=== PATIENT | female | born 1980 | race Caucasian/White ===

== ENCOUNTER 2022-07-17 16:59 | Emergency (ER) | payer MEDICAID, SELFPAY ==
[2022-07-17 17:00] VITALS: BP 123/90; PULSE 98; RESP 16; TEMP 36.4; O2SAT 98; BMI 21.4
--- NOTE | 2022-07-17 17:15 | ED.VIS.GI ---
HPI HPI - GI History of Present Illness Chief Complaint: Abd Pain Informant: patient Abdominal Pain/Flank Pain Onset: Yesterday Context: Sudden Onset Timing: Continuous Quality: Sharp and Stabbing Location: Epigastric, RUQ and LUQ Worsened by: Nothing Relieved by: Nothing Nausea/Vomiting/Emesis GI Symptom: Positive for Nausea and Vomiting Quality: Positive for Nonbilious; Negative for Blood streaks, Coffee ground or Hematemesis Diarrhea/Melena/Hematochezia GI Symptom: Positive for Diarrhea; Negative for Melena or Hematochezia Associated Symptoms Associated Symptoms: Negative for Dysuria, Frequency or Hematuria Narrative Narrative: Patient presents with abdominal pain that began yesterday. Patient states it began suddenly. Patient states it is constant. Patient states it is sharp and stabbing. Patient states it is worse over the epigastric area and upper abdomen. Patient also admits to some lower abdominal pain. Patient states nothing makes it better nothing makes it worse. Patient is at 180 for alcohol detox. Patient states she did drink some hand hydrogenation operator to try to help with the pain. Patient states she has a history of pancreatitis and this feels similar to that. Patient admits to some nausea and vomiting but denies any hematemesis or coffee-ground emesis. Patient does admit to some diarrhea but denies any melena or hematochezia. Patient denies any urinary complaints. PFSH PFSH Medical History Clavicle fracture ETOH abuse Home Medications bupropion HCl 100 mg tablet 100 mg PO DAILY 07/17/22 [History Last Taken Unknown] escitalopram oxalate 5 mg tablet (Lexapro) 0 mg PO DAILY 07/17/22 [History Last Taken Unknown] lipase 3,000-protease 9,500-amylase 15,000 unit capsule, delayed rel (Creon) 1 cap PO TIDCM 07/17/22 [History Last Taken Unknown] multivit 33-meth.folate 2.5 mg-acetylcyst 200 mg-chromium 1 mg capsule 1 cap PO DAILY 07/17/22 [History Last Taken Unknown] Allergy/AdvReac Type Severity Reaction Status Date / Time No Known Allergies Allergy Verified 07/17/22 17:00 Surgical History (Updated 07/17/22 @ 17:[address] Moody Barclay, DO) Hx of dilation and curettage S/P ORIF (open reduction internal fixation) fracture Social History Smoking Status: Current every day smoker tobacco type: cigarettes ROS ROS ED Constitutional Constitutional ED: Reports chills, fever(s) and subjective Eyes Eyes: Denies blurry vision or change in vision ENT ENT ED: Denies rhinorrhea or sore throat Cardiovascular Cardiovascular: Denies chest pain or palpitations Respiratory/Chest Respiratory/Chest: Denies cough or dyspnea Gastrointestinal Gastrointestinal: Reports abdominal pain, diarrhea, nausea and vomiting Genitourinary Genitourinary ED: Denies dysuria or hematuria Musculoskeletal Musculoskeletal: Reports back pain and neck pain Integumentary Denies abscess or rash Neurologic Neurologic: Reports headache(s); Denies weakness Allergic/Immunologic Allergic/Immunologic ED: Denies mouth swelling or urticaria EXAM Physical Exam Const Vital Signs: 07/17/22 17:00 07/17/22 19:49 Temperature 97.6 F L Temperature Source Oral Pulse Rate 98 Respiratory Rate 16 18 Blood Pressure 123/90 H Blood Pressure Mean 101 Pulse Ox 98 Oxygen Delivery Method Room Air Positive well nourished and well developed General Appearance ED: well developed HEENT Reports moist mucous membranes Neck supple and no JVD Resp normal respiratory effort and clear to auscultation bilaterally Cardio regular rate, regular rhythm and no murmurs GI normal to inspection, nondistended, normoactive bowel sounds Palpation: soft and tender epigastric, LLQ, RLQ, LUQ, RUQ, periumbilical and suprapubic; Negative for guarding or rebound tenderness present Extremity normal to inspection General Extremety ED: Negative for edema or tenderness General Extremity: Negative for edema Neuro oriented x3, CN's II-XII intact bilaterally and no sensory deficits noted Sensorium / Orientation: alert Motor Exam: strength 5/5 throughout Psych mental status grossly normal Skin no rashes or lesions noted MDM MDM MDM Narrative Medical decision making narrative: IV fluids, Zofran, and Bentyl here. CBC was within normal limits. Comprehensive metabolic profile was within normal limits. Lipase was normal. Serum test was negative. Serum alcohol level was elevated at 185. Urinalysis does not show any evidence of urinary tract infection. Urine tox screen was positive for benzodiazepines and methamphetamine. Patient was advised of her findings. Patient was still having some abdominal pain and anxiety. Patient was given a dose of Tylenol and hydroxyzine. Patient was instructed to follow-up with her primary care physician in 5 to 7 days. Patient was instructed to follow-up with 180 as scheduled. Patient understood and was agreeable with the plan. All questions were answered. Lab Data Attestation: I reviewed the patient's lab results. Labs: Laboratory Results - last 24 hr 07/17/22 07/17/22 07/17/22 17:58 17:58 17:58 WBC 9.4 RBC 3.86 L Hgb 12.5 Hct 37.6 MCV 97.4 MCH 32.4 H MCHC 33.2 RDW Std Deviation 47.5 H RDW Coeff of Rocio 13.2 Plt Count 221 MPV 9.2 Immature Gran % (Auto) 0.300 Neut % (Auto) 51.9 Lymph % (Auto) 41.6 H Coles % (Auto) 5.1 Eos % (Auto) 0.1 Baso % (Auto) 1.0 Absolute Neuts (auto) 4.9 Absolute Lymphs (auto) 3.91 Nucleated RBC % 0 Sodium 141 Potassium 4.6 Chloride 105 Carbon Dioxide 30.0 Anion Gap 6 BUN 15 Creatinine 0.74 Estim Creat Clear Calc 101.94 Est GFR (MDRD) Af Amer 111 Est GFR (MDRD) Non-Af 92 BUN/Creatinine Ratio 20.2 H Glucose 80 Calcium 9.6 Total Bilirubin 0.20 AST 40 H ALT 45 Alkaline Phosphatase 75 Total Protein 7.0 Albumin 3.6 Globulin 3.4 Albumin/Globulin Ratio 1.1 Lipase 113 Serum , Qual Urine Color Urine Clarity Urine pH Ur Specific [place] Urine Protein Urine Glucose (UA) Urine Ketones Urine Occult Blood Urine Nitrite Urine Bilirubin Urine Urobilinogen Ur Leukocyte Esterase Urine Opiates Screen Urine Methadone Screen Ur Barbiturates Screen Ur Phencyclidine Scrn Ur Amphetamines Screen MDMA (Ecstasy) Screen U Benzodiazepines Scrn Urine Cocaine Screen U Cannabinoids Screen Ur Drug Screen Comment Ethyl Alcohol 185.0 07/17/22 07/17/22 07/17/22 17:58 19:43 19:43 WBC RBC Hgb Hct MCV MCH MCHC RDW Std Deviation RDW Coeff of Rocio Plt Count MPV Immature Gran % (Auto) Neut % (Auto) Lymph % (Auto) Coles % (Auto) Eos % (Auto) Baso % (Auto) Absolute Neuts (auto) Absolute Lymphs (auto) Nucleated RBC % Sodium Potassium Chloride Carbon Dioxide Anion Gap BUN Creatinine Estim Creat Clear Calc Est GFR (MDRD) Af Amer Est GFR (MDRD) Non-Af BUN/Creatinine Ratio Glucose Calcium Total Bilirubin AST ALT Alkaline Phosphatase Total Protein Albumin Globulin Albumin/Globulin Ratio Lipase Serum , Qual NEGATIVE Urine Color Straw Urine Clarity Clear Urine pH 6.0 Ur Specific [place] 1.020 Urine Protein Negative Urine Glucose (UA) Normal Urine Ketones Negative Urine Occult Blood Negative Urine Nitrite Negative Urine Bilirubin Negative Urine Urobilinogen Normal Ur Leukocyte Esterase Negative Urine Opiates Screen NEGATIVE Urine Methadone Screen NEGATIVE Ur Barbiturates Screen NEGATIVE Ur Phencyclidine Scrn NEGATIVE Ur Amphetamines Screen NEGATIVE MDMA (Ecstasy) Screen POSITIVE H U Benzodiazepines Scrn POSITIVE H Urine Cocaine Screen NEGATIVE U Cannabinoids Screen NEGATIVE Ur Drug Screen Comment Ethyl Alcohol Discharge Plan Triage Chief Complaint: Abd Pain ED Provider: Moody Barclay Dx/Rx/DC Orders Clinical Impression: Abdominal pain, Alcohol intoxication, Substance abuse Instructions: ED Abdominal Pain Unkn Cause Fem Prescriptions: No Action bupropion HCl [Wellbutrin] 100 mg Tablet 100 mg PO DAILY escitalopram oxalate [Lexapro] 5 mg Tablet 0 mg PO DAILY Creon 3,000-9,500- 15,000 unit Capsule,Delayed Release(Dr/Ec) 1 cap PO TIDCM Label Comments: PT UNSURE OF DOSE. multivit [id number]-chrom 2.5-200-1 mg-mg-mg Capsule 1 cap PO DAILY Primary Care Provider: Guido Doctor,Out of Referrals: [facility] [Non-Staff] - 3-5 Days [facility] Doctor,Out of [Primary Care Provider] - 5-7 Days Disposition Disposition: Home, Self Care
[2022-07-17] MEDS: 0.9% Normal Saline 1,000 ML 1000 ML IV (18:06)
[2022-07-17] MEDS: Dicyclomine 20 MG/2 ML Vial IM (18:07)
[2022-07-17] MEDS: Ondansetron 4 MG/2 ML Vial IV (18:07)
[2022-07-17 18:12] LABS: Absolute Lymphocyte Count 3.91 X10^3/uL (0.83-4.51); Absolute Neutrophil Count 4.9 X10^3/uL (2.0-7.7); Basophil# 0.09 X10^3/uL; Eosinophil# 0.01 X10^3/uL; Eosinophils% 0.1 % (0-5); Hematocrit 37.6 % (37-47); Hemoglobin 12.5 g/dL (12.0-15.0); Lymphocyte # 3.91 X10^3/ul (0.83-4.51); Lymphocyte % 41.6 % (19-41); Mean Corp Hgb Conc 33.2 g/dL (32-36); Mean Corpuscular Hgb 32.4 pg (27.0-32.0); Mean Corpuscular Volume 97.4 fL (81-99); Mean Platelet Vol. 9.2 fl (6.2-12.0); Monocyte# 0.48 X10^3/uL; Monocyte% 5.1 % (0-10); NRBC Flagged by Analyzer 0 % (0-5); Neutrophil # 4.87 X10^3/uL (2.7-7.7); Neutrophil % 51.9 % (47-70); Platelet Count 221 K/mm3 (150-450); RBC Distribution Width CV 13.2 % (11.6-14.6); RBC Distribution Width SD 47.5 fl (35.1-43.9); Red Blood Count 3.86 M/mm3 (4.2-5.4); White Blood Count 9.4 K/mm3 (4.4-11.0)
[2022-07-17 18:27] LABS: Internal QC Validated? YES +Cl - CLEAR BKGD; Pregnancy, Serum, hCG Quali. NEGATIVE Negative
[2022-07-17 18:29] LABS: ALB/GLOB Ratio 1.1 RATIO (0.9-2.4); AST(SGOT) 40 U/L (15-37); Alanine Aminotransfer ALT/SGPT 45 U/L (13-56); Albumin, Serum 3.6 g/dL (3.2-5.0); Alkaline Phosphatase 75 U/L (45-117); Anion Gap 6 (5-15); BUN 15 mg/dL (7-18); BUN/Creat Ratio 20.2 RATIO (10-20); Calcium,Total 9.6 mg/dL (8.5-10.1); Chloride 105 mmol/L (98-107); Creatinine, Serum 0.74 mg/dL (0.55-1.02); EST Glomerular Filtration Rate 92 mL/min (>60); Est Glom Filt Rate - Afr Amer 111 mL/min (>60); Estimated Creatinine Clearance 101.94 ml/min; Globulin 3.4 g/dL (2.2-4.2); Glucose 80 mg/dL (74-106); Lipase 113 U/L (73-393); Potassium 4.6 mmol/L (3.5-5.1); Sodium Level 141 mmol/L (136-145)
[2022-07-17 19:49] VITALS: RESP 18
[2022-07-17 19:52] LABS: Bacteria 0 SEEN /hpf (None Seen); Mucous, Urine 0 SEEN /hpf (<or=2+); Red Blood Cells-Urine 0 SEEN /hpf (0-5); White Blood Cells 0 SEEN /hpf (0-5)
[2022-07-17 19:56] LABS: Color, Urine Straw (Yellow); Glucose, Dipstick Normal (Normal); Ketone-Dipstick Negative (Negative); Leukocyte Esterase-Dipstick Negative /ul (Negative); Nitrite-Dipstick Negative (Negative); Occult Blood-Urine Negative /ul (Negative); Protein-Dipstick Negative (Negative); Urine Bilirubin Dipstick Negative (Negative); Urine Clarity Clear (Clear); Urine Urobilinogen Normal (Normal)
[2022-07-17 20:08] LABS: Amphetamine Urine VISTA NEGATIVE (<1000 ng/mL); Barbiturate Urine VISTA NEGATIVE (< 200 ng/mL); Benzodiazepine Urine VISTA POSITIVE (< 200 ng/mL); Cocaine Urine VISTA NEGATIVE (< 300 ng/mL); Ecstacy Urine VISTA POSITIVE (< 500 ng/mL); Methadone Urine VISTA NEGATIVE (< 300 ng/mL); PCP Urine VISTA NEGATIVE (< 25 ng/mL); THC Urine VISTA NEGATIVE (< 50 ng/mL); Vista UDS pH Range 4
[2022-07-17 20:13] LABS: Squamous Epithelial Cells - UA 0-5 SEEN /hpf (5-10)
[2022-07-17] MEDS: hydrOXYzine PAM 25 MG Capsule PO (20:23)
[2022-07-17] MEDS: Acetaminophen 500 MG Tablet 1000 MG PO (20:23)
[2022-07-17 20:26] VITALS: BP 120/60; PULSE 104; RESP 18; O2SAT 98
== END 2022-07-17 20:28 | disposition home or self-care (01) ==
PROVIDERS: Emergency Provider Emergency Medicine; Visit Provider Emergency Medicine
DX: R10.13 Epigastric pain (principal); F10.129 Alcohol abuse with intoxication, unspecified; R10.11 Right upper quadrant pain; R10.12 Left upper quadrant pain; R11.2 Nausea with vomiting, unspecified; R19.7 Diarrhea, unspecified; F41.9 Anxiety disorder, unspecified; M54.9 Dorsalgia, unspecified; M54.2 Cervicalgia; F17.210 Nicotine dependence, cigarettes, uncomplicated; Z79.1 Long term (current) use of non-steroidal anti-inflammatories (NSAID); Z79.899 Other long term (current) drug therapy
CPT/HCPCS: 80053; 80307; 81001; 82077; 83690; 84703; 85025; 96361; 96372; 96374; 99285; J7030; A4216; J2405

== ENCOUNTER 2022-07-18 16:11 | Inpatient (IN) | payer MEDICAID, SELFPAY ==
[2022-07-18] VITALS (7 sets, daily range): BP systolic 88–134; BP diastolic 47–93; PULSE 78–115; RESP 16–20; TEMP 36.3–36.7; O2SAT 94–98; BMI 18.2; BMI 20.5
--- NOTE | 2022-07-18 16:56 | EDS_ITS ---
HPI History of Present Illness Chief Complaint: ETOH Intox Informant: patient Narrative Narrative: Presents requesting alcohol detox. Patient was seen yesterday ED for abdominal pain concern for pancreatitis. She is at 180 for 1 day prior to coming here. She reported drinking hand water taxi captain to try to help with symptoms. She tried to go back however she was denied back. She stated a hotel and drank alcohol. Last drink 4 PM. States previously was at main campus for pancreatitis for 8 days. She is not planning they 18 months ago for alcohol treatment. Drink of choice was white claw. Review labs yesterday normal lipase. She had alcohol of 185, tox screen noted benzos and MDMA. She denies taking ecstasy, she states she was given Ativan at 180. Reports allergic to phenobarbital. Reports continued abdominal pain with vomiting however is able to take alcohol. PFSH PFSH Medical History Clavicle fracture ETOH abuse Migraines Pancreatitis Seizures Smoker Home Medications escitalopram oxalate 5 mg tablet (Lexapro) 10 mg PO DAILY mental health 07/17/22 [History Last Taken Unknown] lipase 3,000-protease 9,500-amylase 15,000 unit capsule, delayed rel (Creon) 1 cap PO TIDCM liver 07/17/22 [History Last Taken Unknown] multivit 33-meth.folate 2.5 mg-acetylcyst 200 mg-chromium 1 mg capsule 1 cap PO DAILY 07/17/22 [History Last Taken 07/17/22] acamprosate 333 mg tablet,delayed release 333 mg PO TID kidneys 07/18/22 [History Last Taken 07/16/22] bupropion HCl 300 mg 24 hr tablet, extended release 300 mg PO DAILY 07/18/22 [H istory Last Taken 07/17/22] chlordiazepoxide HCl 25 mg capsule 25 mg PO TID PRN PRN ask your doc 07/18/22 [History Last Taken Unknown] folic acid 1 mg tablet 1 mg PO DAILY supplement 07/18/22 [History Last Taken 07/16/22] gabapentin 300 mg capsule 300 mg PO BID nerve pain 07/18/22 [History Last Taken 07/17/22] lorazepam 1 mg tablet 1 mg PO PRN PRN Seizures 07/18/22 [History Last Taken Unknown] meloxicam 15 mg tablet 15 mg PO DAILY anti infamitory 07/18/22 [History Last Taken Unknown] oxycodone 5 mg tablet 5 mg PO Q6H PRN PRN Pain 07/18/22 [History Last Taken 07/16/22] pantoprazole 40 mg tablet,delayed release 40 mg PO DAILY acid reflux 07/18/22 [History Last Taken 07/17/22] trazodone 100 mg tablet 150 mg PO QHS sleep 07/18/22 [History Last Taken 07/17/22] venlafaxine 225 mg tablet,extended release 24 hr 225 mg PO DAILY Check with primary doctor 07/18/22 [History Last Taken 07/17/22] Allergy/AdvReac Type Severity Reaction Status Date / Time hydroxyzine [From Vistaril] Allergy Rash Verified 07/18/22 17:27 phenobarbital Allergy Rash Verified 07/18/22 17:27 Surgical History Hx of dilation and curettage S/P ORIF (open reduction internal fixation) fracture Social History Smoking Status: Current every day smoker tobacco type: cigarettes ROS ROS ED Constitutional Constitutional ED: Denies chills, fever(s) or sweats Eyes Eyes: Denies change in vision ENT ENT ED: Denies dysphagia or sore throat Cardiovascular Cardiovascular: Denies chest pain, leg edema, palpitations or racing heartbeat Respiratory/Chest Respiratory/Chest: Denies cough, dyspnea or dyspnea on exertion Gastrointestinal Gastrointestinal: Reports abdominal pain, nausea and vomiting; Denies diarrhea Genitourinary Genitourinary ED: Denies dysuria, hematuria or urinary frequency Musculoskeletal Musculoskeletal: Denies back pain, extremity pain or neck pain Integumentary Denies rash or wounds Neurologic Neurologic: Denies headache(s), paresthesias or weakness EXAM Physical Exam Const Vital Signs: 07/18/22 16:12 07/18/22 16:12 07/18/22 16:33 Temperature 97.4 F L 97.4 F L Temperature Source Temporal Temporal Pulse Rate 115 H 115 H Respiratory Rate 20 H 20 H 18 Blood Pressure 134/93 H 134/93 H 124/87 H Blood Pressure Mean 106 106 99 Blood Pressure Source Monitor Blood Pressure Position Supine Blood Pressure Location Right Arm Pulse Ox 96 96 94 Oxygen Delivery Method Room Air Room Air Room Air 07/18/22 18:41 07/18/22 20:00 Temperature Temperature Source Pulse Rate 94 92 Respiratory Rate 18 18 Blood Pressure 114/76 88/48 L Blood Pressure Mean 88 61 Blood Pressure Source Blood Pressure Position Blood Pressure Location Pulse Ox 98 96 Oxygen Delivery Method Room Air Room Air Positive well nourished and well developed Constitutional Narrative: Intoxicated, cooperative, following commands and answering questions. General Appearance ED: well developed HEENT Reports moist mucous membranes normocephalic and atraumatic Eyes PERRL, EOMs intact bilaterally and conjunctivae normal General Eye ED: Yes normal appearance of both eyes Neck no lymphadenopathy and supple General: Negative for tenderness Chest Wall Chest: Negative for tenderness Resp normal respiratory effort and normal air movement Effort and Inspection: symmetric chest movement; Negative for respiratory distress Cardio regular rhythm and no murmurs Rate: tachycardic Peripheral Pulses: pulses 2+ throughout GI normal to inspection, nondistended, normoactive bowel sounds GI Narrative: Mid abdominal tenderness without guarding or rebound. Palpation: Negative for guarding or rebound tenderness present Back/Spine no CVA tenderness and no thoracic nor lumbar tenderness Extremity normal to inspection General Extremety ED: Negative for edema or tenderness General Extremity: Negative for edema Neuro oriented x3 and no sensory deficits noted Sensorium / Orientation: awake and alert Skin no rashes or lesions noted and no wounds MDM MDM MDM Narrative Medical decision making narrative: Patient clinically intoxicated and requesting detox. He reports persistent pain in epigastrium since being seen yesterday. She was tender with this. Medical clearance labs including abdominal labs were obtained along with her symptoms. White count returned at 14, this was up from 9 yesterday. Lipase was normal liver enzyme AST at 45. Creatinine 0.78. Alcohol returned at 420. Talk screen again notes benzodiazepines and MDMA. Patient reports receiving Ativan at 180. She denies any MDMA use. With her leukocytosis and abdominal pain epigastrium CT abdomen pelvis IV contrast obtained noting possible sludge in the gallbladder. possible mild thickening of the proximal colon could be due to incomplete distention or infection. She is nontender in this area. She had epigastric tenderness for ultrasound was obtained to rule out cholecystitis. Results noted sludge with no gallbladder wall thickening or pericholecystic fluid. There is no surgical emergencies. Patient still requesting alcohol assistance. Spoke with hospitalist Dr. Cleary who evaluated for admission. Lab Data Attestation: I reviewed the patient's lab results. Labs: Laboratory Results - last 24 hr 07/18/22 07/18/22 07/18/22 17:07 17:07 17:07 WBC 14.2 H RBC 4.09 L Hgb 13.1 Hct 38.1 MCV 93.2 MCH 32.0 MCHC 34.4 RDW Std Deviation 45.1 H RDW Coeff of Rocio 13.2 Plt Count 249 MPV 9.1 Immature Gran % (Auto) 0.400 Neut % (Auto) 59.1 Lymph % (Auto) 36.6 [place] % (Auto) 3.2 Eos % (Auto) 0.1 Baso % (Auto) 0.6 Absolute Neuts (auto) 8.4 H Absolute Lymphs (auto) 5.20 H Nucleated RBC % 0 Differential Comment Atypical Lymphocytes 1+ Platelet Estimate ADEQUATE RBC Morphology N CHROM Anisocytosis RARE Macrocytosis RARE Sodium 136 Potassium 4.3 Chloride 100 Carbon Dioxide 24.0 Anion Gap 12 BUN 12 Creatinine 0.78 Estim Creat Clear Calc 82.38 Est GFR (MDRD) Af Amer 105 Est GFR (MDRD) Non-Af 87 BUN/Creatinine Ratio 15.4 Glucose 82 Calcium 8.8 Total Bilirubin 0.30 AST 45 H ALT 53 Alkaline Phosphatase 71 Total Protein 7.1 Albumin 3.6 Globulin 3.5 Albumin/Globulin Ratio 1.0 Lipase 94 Urine Opiates Screen Urine Methadone Screen Ur Barbiturates Screen Ur Phencyclidine Scrn Ur Amphetamines Screen MDMA (Ecstasy) Screen U Benzodiazepines Scrn Urine Cocaine Screen U Cannabinoids Screen Ur Drug Screen Comment Ethyl Alcohol 420.0 H* 07/18/22 18:40 WBC RBC Hgb Hct MCV MCH MCHC RDW Std Deviation RDW Coeff of Rocio Plt Count MPV Immature Gran % (Auto) Neut % (Auto) Lymph % (Auto) [place] % (Auto) Eos % (Auto) Baso % (Auto) Absolute Neuts (auto) Absolute Lymphs (auto) Nucleated RBC % Differential Comment Atypical Lymphocytes Platelet Estimate RBC Morphology Anisocytosis Macrocytosis Sodium Potassium Chloride Carbon Dioxide Anion Gap BUN Creatinine Estim Creat Clear Calc Est GFR (MDRD) Af Amer Est GFR (MDRD) Non-Af BUN/Creatinine Ratio Glucose Calcium Total Bilirubin AST ALT Alkaline Phosphatase Total Protein Albumin Globulin Albumin/Globulin Ratio Lipase Urine Opiates Screen NEGATIVE Urine Methadone Screen NEGATIVE Ur Barbiturates Screen NEGATIVE Ur Phencyclidine Scrn NEGATIVE Ur Amphetamines Screen NEGATIVE MDMA (Ecstasy) Screen POSITIVE H U Benzodiazepines Scrn POSITIVE H Urine Cocaine Screen NEGATIVE U Cannabinoids Screen NEGATIVE Ur Drug Screen Comment Ethyl Alcohol Radiography Diagnostic Testing: Clinical Impression(s) from Imaging Studies Abdomen/Pelvis CT 07/18/22 18:07 IMPRESSION: 1. Fluid density lesion in the right hemipelvis which may represent an ovarian cyst. Trace amount of free fluid in the pelvis. 2. Mild thickening of the wall of the proximal colon which may be due to incomplete distention mild colitis. 3. Trace dense material in the gallbladder which may represent sludge. There is no gallstone or pericholecystic inflammation. Electronically Signed: Segundo Teixeira MD at 19:17 EDT , Gallbladder Ultrasound 07/18/22 19:21 IMPRESSION: Trace amount of sludge within the gallbladder. No other abnormalities are identified. Electronically Signed: Segundo Teixeira MD at 20:24 EDT , Discharge Plan Dx/Rx/DC Orders Clinical Impression: Alcohol intoxication, Abdominal pain, Alcohol dependence Disposition Disposition: Acute Care Hospital [facility] Discharge Date/Time: 07/18/22 21:45
[2022-07-18 17:19] LABS: Absolute Neutrophil Count 8.4 X10^3/uL (2.0-7.7); Basophil# 0.08 X10^3/uL; Basophil% 0.6 % (0-1); Eosinophil# 0.01 X10^3/uL; Eosinophils% 0.1 % (0-5); Hematocrit 38.1 % (37-47); Hemoglobin 13.1 g/dL (12.0-15.0); Lymphocyte % 36.6 % (19-41); Mean Corp Hgb Conc 34.4 g/dL (32-36); Mean Corpuscular Volume 93.2 fL (81-99); Mean Platelet Vol. 9.1 fl (6.2-12.0); Monocyte# 0.45 X10^3/uL; Monocyte% 3.2 % (0-10); NRBC Flagged by Analyzer 0 % (0-5); Neutrophil # 8.43 X10^3/uL (2.7-7.7); Neutrophil % 59.1 % (47-70); POSITIVE DIFFERENTIAL YES; POSITIVE MORPHOLOGY YES; Platelet Count 249 K/mm3 (150-450); RBC Distribution Width CV 13.2 % (11.6-14.6); RBC Distribution Width SD 45.1 fl (35.1-43.9); Red Blood Count 4.09 M/mm3 (4.2-5.4); White Blood Count 14.2 K/mm3 (4.4-11.0)
[2022-07-18 17:23] LABS: Differential Indicated SCAN CRITERIA MET
--- NOTE | 2022-07-18 17:26 | CM.ED ---
Social Work Note Reason for Referral: RAMP SW reviewed chart. Pt is at [facility] for Detox. SW in to speak with pt. SW asked pt if she is at [facility] for the Detox/RAMP program and pt states I guess. It appears pt has the Plan of Care agreement next to her in the bed. SW reviewed rules of RAMP program. Pt agreeable. SW placed a call to treatment navigator and updated staff that pt will be admitted to RAMP program. Myla Dodd COMMUNITY MARKETING COORDINATOR, GEOTECHNICAL ENGINEERING TECHNICIAN
[2022-07-18] MEDS: 0.9% Normal Saline 1,000 ML 999 ML IV (17:43)
[2022-07-18] MEDS: Ondansetron 4 MG/2 ML Vial IV (17:43)
[2022-07-18 17:49] LABS: Atypical Lymphocyte 1+ %; Platelet Estimate ADEQUATE (ADEQ)
[2022-07-18 17:50] LABS: Anisocytosis RARE; Macrocytosis RARE; Red Cell Morphology N CHROM NORMAL (NORM C&C)
[2022-07-18 17:54] LABS: AST(SGOT) 45 U/L (15-37); Alanine Aminotransfer ALT/SGPT 53 U/L (13-56); Albumin, Serum 3.6 g/dL (3.2-5.0); Alkaline Phosphatase 71 U/L (45-117); Anion Gap 12 (5-15); BUN 12 mg/dL (7-18); BUN/Creat Ratio 15.4 RATIO (10-20); Calcium,Total 8.8 mg/dL (8.5-10.1); Chloride 100 mmol/L (98-107); Creatinine, Serum 0.78 mg/dL (0.55-1.02); EST Glomerular Filtration Rate 87 mL/min (>60); Est Glom Filt Rate - Afr Amer 105 mL/min (>60); Estimated Creatinine Clearance 82.38 ml/min; Globulin 3.5 g/dL (2.2-4.2); Glucose 82 mg/dL (74-106); Lipase 94 U/L (73-393); Potassium 4.3 mmol/L (3.5-5.1); Protein, Total 7.1 g/dL (6.4-8.2); Sodium Level 136 mmol/L (136-145)
--- NOTE | 2022-07-18 18:07 | CT_ITS ---
EXAM: CT ABDOMEN AND PELVIS WITH INTRAVENOUS CONTRAST CLINICAL INDICATION: abdominal pain TECHNIQUE: Helically acquired images were obtained of the abdomen and pelvis with intravenous contrast. This CT exam was performed using one or more of the following dose reduction techniques: automated exposure control, adjustment of the mA and/or kV according to patient size, and/or use of iterative reconstruction technique. This report was created using [employer] report generation technology. CONTRAST: IV 75mL [id number] COMPARISON: None. FINDINGS: LOWER THORAX: Unremarkable. Lung bases are clear. No cardiomegaly. No significant pericardial effusion. ABDOMEN: LIVER: Unremarkable. Homogeneous. No focal mass. GALLBLADDER AND BILE DUCTS: There is minimally dense material in the gallbladder which may represent sludge. No calcified gallstones. No gallbladder distention or wall edema. No intra- or extrahepatic biliary ductal dilation. PANCREAS: Unremarkable. No focal cystic or solid mass. SPLEEN: Unremarkable. Normal size without focal cystic or solid mass. ADRENALS: Unremarkable. No nodules. KIDNEYS AND URETERS: Unremarkable. Normal renal size and position. No hydronephrosis. STOMACH AND BOWEL: There is mild thickening of the wall of the proximal colon likely due to incomplete distention. PELVIS: APPENDIX: No evidence of acute appendicitis. BLADDER: Unremarkable. REPRODUCTIVE: There is a low-density lesion in the right hemipelvis measures 2.3 x 1.7 cm compatible with an ovarian cyst. ABDOMEN and PELVIS: INTRAPERITONEAL SPACE: Unremarkable. No ascites or other fluid collection. No free air. BONES/JOINTS: Unremarkable. No suspicious lytic or blastic abnormality. SOFT TISSUES: Unremarkable. No discrete abdominal or pelvic wall hernia. VASCULATURE: Unremarkable. Abdominal aorta is non-dilated. LYMPH NODES: Unremarkable. No enlarged lymph nodes. CT/Abdomen/Pelvis W IV Cont ONLY IMPRESSION: 1. Fluid density lesion in the right hemipelvis which may represent an ovarian cyst. Trace amount of free fluid in the pelvis. 2. Mild thickening of the wall of the proximal colon which may be due to incomplete distention mild colitis. 3. Trace dense material in the gallbladder which may represent sludge. There is no gallstone or pericholecystic inflammation. Electronically Signed: Segundo Teixeira MD at 19:17 EDT ,
[2022-07-18 19:08] LABS: Amphetamine Urine VISTA NEGATIVE (<1000 ng/mL); Barbiturate Urine VISTA NEGATIVE (< 200 ng/mL); Benzodiazepine Urine VISTA POSITIVE (< 200 ng/mL); Cocaine Urine VISTA NEGATIVE (< 300 ng/mL); Ecstacy Urine VISTA POSITIVE (< 500 ng/mL); Methadone Urine VISTA NEGATIVE (< 300 ng/mL); PCP Urine VISTA NEGATIVE (< 25 ng/mL); THC Urine VISTA NEGATIVE (< 50 ng/mL); Vista UDS pH Range 4
--- NOTE | 2022-07-18 19:21 | US_ITS ---
EXAM: US ABDOMEN LIMITED, RIGHT UPPER QUADRANT CLINICAL INDICATION: abd pain -- poss sludge on CT, TECHNIQUE: Real-time ultrasound of the right upper quadrant with image documentation. This report was created using [employer] report Smart GPS Backpack technology. COMPARISON: None. FINDINGS: LIVER: Liver measures 16.6 cm. There is a 6 x 7 mm echogenic focus in the liver compatible with hemangioma. No intrahepatic biliary ductal dilation. GALLBLADDER: Gallbladder wall measures 2 mm. Common bile duct measures 3 mm. Trace amount of sludge present. There are no gallstones. No pericholecystic fluid. Negative sonographic Castorena''s sign. COMMON BILE DUCT: Unremarkable as visualized. The proximal common bile duct is within normal limits for the patient''s age. PANCREAS: Unremarkable as visualized. No focal abnormality is demonstrated in the pancreas. No pancreatic ductal dilatation. RIGHT KIDNEY: The right kidney measures 11.3 x 4.6 x 4.9 cm. There is no hydronephrosis. No shadowing calculus. No focal lesion or perinephric collection is demonstrated. US/Gallbladder IMPRESSION: Trace amount of sludge within the gallbladder. No other abnormalities are identified. Electronically Signed: Segundo Teixeira MD at 20:24 EDT ,
--- NOTE | 2022-07-18 20:58 | HP.PCM.HOS_ITS ---
HPI - General General Date of Admission: 07/18/22 Date of Service: 07/18/22 Chief Complaint: Desire for detoxification HPI Narrative FRANCES GOLD, is a 41 F with a significant history of alcoholism who presents to the emergency department with desire to detoxify. Reportedly she drinks about 8% of alcohol. She drinks heavily. She resumed drinking for at least 15 years but her drinking habit has worsened. She report that her alcoholism is secondary to stress from losing a 7 months fetus in the past and a pending divorce from her who is orthopedic surgeon; and who she put through school. Last time she drank was a day before presentation. She thinks she is in withdrawal has she has increased anxiety and abdominal pain. She was at the hospital a day before presentation for abdominal pain. 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 Reportedly about a month ago she was admitted at [facility] for pancreatitis where she spent 8 days. [facility] Medical History Clavicle fracture ETOH abuse Migraines Pancreatitis Seizures Smoker Home Medications escitalopram oxalate 5 mg tablet (Lexapro) 10 mg PO DAILY mental health 07/17/22 [History Last Taken Unknown] lipase 3,000-protease 9,500-amylase 15,000 unit capsule, delayed rel (Creon) 1 cap PO TIDCM liver 07/17/22 [History Last Taken Unknown] multivit 33-meth.folate 2.5 mg-acetylcyst 200 mg-chromium 1 mg capsule 1 cap PO DAILY 07/17/22 [History Last Taken 07/17/22] acamprosate 333 mg tablet,delayed release 333 mg PO TID kidneys 07/18/22 [History Last Taken 07/16/22] bupropion HCl 300 mg 24 hr tablet, extended release 300 mg PO DAILY 07/18/22 [History Last Taken 07/17/22] chlordiazepoxide HCl 25 mg capsule 25 mg PO TID PRN PRN ask your doc 07/18/22 [History Last Taken Unknown] folic acid 1 mg tablet 1 mg PO DAILY supplement 07/18/22 [History Last Taken 07/16/22] gabapentin 300 mg capsule 300 mg PO BID nerve pain 07/18/22 [History Last Taken 07/17/22] lorazepam 1 mg tablet 1 mg PO PRN PRN Seizures 07/18/22 [History Last Taken Unknown] meloxicam 15 mg tablet 15 mg PO DAILY anti infamitory 07/18/22 [History Last Taken Unknown] oxycodone 5 mg tablet 5 mg PO Q6H PRN PRN Pain 07/18/22 [History Last Taken 07/16/22] pantoprazole 40 mg tablet,delayed release 40 mg PO DAILY acid reflux 07/18/22 [History Last Taken 07/17/22] trazodone 100 mg tablet 150 mg PO QHS sleep 07/18/22 [History Last Taken 07/17/22] venlafaxine 225 mg tablet,extended release 24 hr 225 mg PO DAILY Check with primary doctor 07/18/22 [History Last Taken 07/17/22] Allergy/AdvReac Type Severity Reaction Status Date / Time hydroxyzine [From Vistaril] Allergy Rash Verified 07/18/22 17:27 phenobarbital Allergy Rash Verified 07/18/22 17:27 Family History no significant family his no significant family history Surgical History Hx of dilation and curettage S/P ORIF (open reduction internal fixation) fracture Social History Smoking Status: Current every day smoker tobacco type: cigarettes ROS ROS Narrative Pertinent positives and pertinent negatives as noted in HPI. All other systems were reviewed and are negative. Vital Signs Vital Signs Vital Signs: 07/18/22 16:12 07/18/22 16:12 07/18/22 16:33 Temperature 97.4 F L 97.4 F L Temperature Source Temporal Temporal Pulse Rate 115 H 115 H Respiratory Rate 20 H 20 H 18 Blood Pressure 134/93 H 134/93 H 124/87 H Blood Pressure Mean 106 106 99 Blood Pressure Source Monitor Blood Pressure Position Supine Blood Pressure Location Right Arm Pulse Ox 96 96 94 Oxygen Delivery Method Room Air Room Air Room Air 07/18/22 18:41 07/18/22 20:00 Temperature Temperature Source Pulse Rate 94 92 Respiratory Rate 18 18 Blood Pressure 114/76 88/48 L Blood Pressure Mean 88 61 Blood Pressure Source Blood Pressure Position Blood Pressure Location Pulse Ox 98 96 Oxygen Delivery Method Room Air Room Air Weight Weight: 54.431 kg Body Mass Index (BMI) 18.2 Physical Exam Narrative Physical exam: General: Well-nourished, well-developed. Head: Normocephalic, atraumatic, no tenderness Eyes: Vision is grossly intact. EOMI ENT, no trauma, moist mucous membranes, no rhinorrhea Neck: Nontender, full range of motion, no spinal tenderness, deformities, step- off CVS: Regular rate and rhythm. S1-S2 present. No murmur, gallop or rub. Respiratory : clear to auscultation bilaterally, chest wall nontender, no wheezing Abdomen: Soft, nontender, nondistended, normal bowel sounds, no masses : Deferred Back: Nontender, no CVA tenderness, no midline spinal tenderness, deformities, step-offs Extremities: Nontender full range of motion, no trauma Skin: Normal color, no trauma, abrasions Neuro: Alert, oriented, cranial nerves II through XII grossly intact. Psychiatry: Normal mood. Normal affect. Not depressed. Not anxious. Results Lab / Micro Data Result Diagrams: 07/18/22 17:07 07/18/22 17:07 Labs: Laboratory Results - last 24 hr 07/18/22 17:07: WBC 14.2 H, RBC 4.09 L, Hgb 13.1, Hct 38.1, MCV 93.2, MCH 32.0, MCHC 34.4, RDW Std Deviation 45.1 H, RDW Coeff of Rocio 13.2, Plt Count 249, MPV 9.1, Immature Gran % (Auto) 0.400, Neut % (Auto) 59.1, Lymph % (Auto) 36.6, [place] % (Auto) 3.2, Eos % (Auto) 0.1, Baso % (Auto) 0.6, Absolute Neuts (auto) 8.4 H, Absolute Lymphs (auto) 5.20 H, Nucleated RBC % 0, Differential Comment , Atypical Lymphocytes 1+, Platelet Estimate ADEQUATE, RBC Morphology N CHROM, Anisocytosis RARE, Macrocytosis RARE 07/18/22 17:07: Sodium 136, Potassium 4.3, Chloride 100, Carbon Dioxide 24.0, Anion Gap 12, BUN 12, Creatinine 0.78, Estim Creat Clear Calc 82.38, Est GFR (MDRD) Af Amer 105, Est GFR (MDRD) Non-Af 87, BUN/Creatinine Ratio 15.4, Glucose 82, Calcium 8.8, Total Bilirubin 0.30, AST 45 H, ALT 53, Alkaline Phosphatase 71, Total Protein 7.1, Albumin 3.6, Globulin 3.5, Albumin/Globulin Ratio 1.0, Lipase 94 07/18/22 17:07: Ethyl Alcohol 420.0 H* 07/18/22 18:40: Urine Opiates Screen NEGATIVE, Urine Methadone Screen NEGATIVE, Ur Barbiturates Screen NEGATIVE, Ur Phencyclidine Scrn NEGATIVE, Ur Amphetamines Screen NEGATIVE, MDMA (Ecstasy) Screen POSITIVE H, U Benzodiazepines Scrn POS ITIVE H, Urine Cocaine Screen NEGATIVE, U Cannabinoids Screen NEGATIVE, Ur Drug Screen Comment Radiology Impression Abdomen/Pelvis CT 07/18/22 18:07 IMPRESSION: 1. Fluid density lesion in the right hemipelvis which may represent an ovarian cyst. Trace amount of free fluid in the pelvis. 2. Mild thickening of the wall of the proximal colon which may be due to incomplete distention mild colitis. 3. Trace dense material in the gallbladder which may represent sludge. There is no gallstone or pericholecystic inflammation. Electronically Signed: Segundo Teixeira MD at 19:17 EDT , Gallbladder Ultrasound 07/18/22 19:21 IMPRESSION: Trace amount of sludge within the gallbladder. No other abnormalities are identified. Electronically Signed: Segundo Teixeira MD at 20:24 EDT , Assessment & Plan Assessment/Plan (1) Abdominal pain: (2) Alcohol intoxication: PLAN: Plan Alcohol dependence and desire for detoxification Talk screen showed alcohol level of 420; positive MDMA and benzos. Reportedly i s on home benzos. She reports allergy to phenobarbital Patient to be started on ativan and other adjunctive medications: Gabapentin as needed; dicyclomine as needed; Vistaril as needed; Imodium as needed; trazodone as needed; Zofran as needed; scheduled thiamine; and schedule folic acid. Monitor CIWA score Tobacco abuse Counseled Abdominal Pain Abdomen/pelvis CT was reviewed and independently interpreted. I agree with radiologist interpretation. Gallbladder ultrasound with sludge in the gallbladder. Bentyl ordered Home Protonix escalated Discussed with patient that will avoid narcotics while on benzos. Leukocytosis White count at 14.2 likely reactive. Trend DVT prophylaxis Low risk Encourage to ambulate Charges/Coding Visit Charges Inpatient E&M: 83411 Init Hosp L2
[2022-07-18] MEDS: LORazepam 1 MG Tablet 0.5 MG PO (22:48)
[2022-07-18] MEDS: traZODone 50 MG Tablet 150 MG PO (22:48)
[2022-07-18] MEDS: Pantoprazole Sodium 40 MG Tablet PO (22:48)
--- NOTE | 2022-07-18 23:51 | NURSING ---
pt states she may have lost an earring while in the emergency room. pt states it may be in with her belongings. This rn notified the emergency room. auditor in charge aware.
[2022-07-19 00:24] LABS: Internal QC Validated? YES +Cl - CLEAR BKGD; Pregnancy, Urine Negative Negative
[2022-07-19 03:25] VITALS: BP 110/71; PULSE 106; RESP 16; TEMP 36.3; O2SAT 95
[2022-07-19] MEDS: LORazepam 1 MG Tablet 0.5 MG PO ×6 (03:27→21:48)
[2022-07-19] MEDS: Gabapentin 300 MG Capsule PO ×2 (03:34→21:48)
[2022-07-19 06:19] LABS: Absolute Lymphocyte Count 4.02 X10^3/uL (0.83-4.51); Absolute Neutrophil Count 2.4 X10^3/uL (2.0-7.7); Basophil# 0.07 X10^3/uL; Eosinophil# 0.02 X10^3/uL; Eosinophils% 0.3 % (0-5); Hemoglobin 12.1 g/dL (12.0-15.0); Lymphocyte # 4.02 X10^3/ul (0.83-4.51); Lymphocyte % 56.7 % (19-41); Mean Corp Hgb Conc 33.6 g/dL (32-36); Mean Corpuscular Hgb 31.7 pg (27.0-32.0); Mean Corpuscular Volume 94.2 fL (81-99); Mean Platelet Vol. 8.9 fl (6.2-12.0); Monocyte# 0.56 X10^3/uL; Monocyte% 7.9 % (0-10); NRBC Flagged by Analyzer 0 % (0-5); Neutrophil # 2.41 X10^3/uL (2.7-7.7); Platelet Count 213 K/mm3 (150-450); RBC Distribution Width CV 13.3 % (11.6-14.6); RBC Distribution Width SD 45.8 fl (35.1-43.9); Red Blood Count 3.82 M/mm3 (4.2-5.4); White Blood Count 7.1 K/mm3 (4.4-11.0)
[2022-07-19 06:42] VITALS: BP 98/55; PULSE 116; RESP 16; TEMP 36.6; O2SAT 94
--- NOTE | 2022-07-19 07:59 | PN.HOSP_ITS ---
Subjective Subjective Follow-up on acute alcohol withdrawal: Patient was seen and examined. She complains of tremors in his extremities as well as numbness. The numbness is not new. Stated that she had been exposed to COVID. COVID rapid antigen test ordered. Objective Data Objective Data Vital Signs: Vital Signs Temp Pulse Resp BP Pulse Ox O2 Del Method 97.9 F 116 H 16 98/55 L 94 Room Air 07/19/22 06:42 07/19/22 06:42 07/19/22 06:42 07/19/22 06:42 07/19/22 06:42 07/19/22 03:25 Oxygen Delivery Method Room Air Weight: 61.6 kg Body Mass Index (BMI) 20.5 Intake & Output: Intake and Output for Last 24 Hours 07/17/22 07/18/22 07/19/22 23:59 23:59 23:59 Intake Total 1300 / 1300 200 / 200 Balance 1300 / 1300 200 / 200 Lab / Micro Data Result Diagrams: 07/19/22 05:39 07/18/22 17:07 Labs: Laboratory Results - last 24 hr 07/18/22 17:07: WBC 14.2 H, RBC 4.09 L, Hgb 13.1, Hct 38.1, MCV 93.2, MCH 32.0, MCHC 34.4, RDW Std Deviation 45.1 H, RDW Coeff of Rocio 13.2, Plt Count 249, MPV 9.1, Immature Gran % (Auto) 0.400, Neut % (Auto) 59.1, Lymph % (Auto) 36.6, [place] % (Auto) 3.2, Eos % (Auto) 0.1, Baso % (Auto) 0.6, Absolute Neuts (auto) 8.4 H, Absolute Lymphs (auto) 5.20 H, Nucleated RBC % 0, Differential Comment , Atypical Lymphocytes 1+, Platelet Estimate ADEQUATE, RBC Morphology N CHROM, Anisocytosis RARE, Macrocytosis RARE 07/18/22 17:07: Sodium 136, Potassium 4.3, Chloride 100, Carbon Dioxide 24.0, Anion Gap 12, BUN 12, Creatinine 0.78, Estim Creat Clear Calc 82.38, Est GFR (MDRD) Af Amer 105, Est GFR (MDRD) Non-Af 87, BUN/Creatinine Ratio 15.4, Glucose 82, Calcium 8.8, Total Bilirubin 0.30, AST 45 H, ALT 53, Alkaline Phosphatase 71, Total Protein 7.1, Albumin 3.6, Globulin 3.5, Albumin/Globulin Ratio 1.0, Lipase 94 07/18/22 17:07: Ethyl Alcohol 420.0 H* 07/18/22 18:40: Urine Opiates Screen NEGATIVE, Urine Methadone Screen NEGATIVE, Ur Barbiturates Screen NEGATIVE, Ur Phencyclidine Scrn NEGATIVE, Ur Amphetamines Screen NEGATIVE, MDMA (Ecstasy) Screen POSITIVE H, U Benzodiazepines Scrn POSITIVE H, Urine Cocaine Screen NEGATIVE, U Cannabinoids Screen NEGATIVE, Ur Drug Screen Comment 07/18/22 18:40: Urine Test Negative 07/19/22 05:39: WBC 7.1, RBC 3.82 L, Hgb 12.1, Hct 36.0 L, MCV 94.2, MCH 31.7, MCHC 33.6, RDW Std Deviation 45.8 H, RDW Coeff of Rocio 13.3, Plt Count 213, MPV 8.9, Immature Gran % (Auto) 0.100, Neut % (Auto) 34.0 L, Lymph % (Auto) 56.7 H, [place] % (Auto) 7.9, Eos % (Auto) 0.3, Baso % (Auto) 1.0, Absolute Neuts (auto) 2.4, Absolute Lymphs (auto) 4.02, Nucleated RBC % 0 Radiography Diagnostic Testing: Radiology Impression Abdomen/Pelvis CT 07/18/22 18:07 IMPRESSION: 1. Fluid density lesion in the right hemipelvis which may represent an ovarian cyst. Trace amount of free fluid in the pelvis. 2. Mild thickening of the wall of the proximal colon which may be due to incomplete distention mild colitis. 3. Trace dense material in the gallbladder which may represent sludge. There is no gallstone or pericholecystic inflammation. Electronically Signed: Segundo Teixeira MD at 19:17 EDT , Gallbladder Ultrasound 07/18/22 19:21 IMPRESSION: Trace amount of sludge within the gallbladder. No other abnormalities are identified. Electronically Signed: Segundo Teixeira MD at 20:24 EDT , Physical Exam Narrative Physical exam: General: Alert, Oriented x3, Cooperative, appears anxious HEENT: Atraumatic Oral: Moist Mucosa Neck: Supple Lungs: Clear to auscultation Cardiovascular: HS I+II, regular, no murmurs Abdomen: Bowel Sounds Present, Soft, Non Tender Extremities: No edema Skin: No rashes, No breakdown Neurological: Grossly intact Psych/Mental Status: Appropriate Assessment & Plan Assessment/Plan (1) Alcohol withdrawal: PLAN: Plan 1. Acute alcohol withdrawal, last CIWA score was 17 Continue to monitor on alcohol withdrawal protocol 2. Nicotine dependence, advised to quit, will continue on replacement 3. Leukocytosis, reactive, resolved 4. Anxiety/depression, stable, Continue bupropion, Lexapro, Effexor 5. GERD, continue PPI 6. DVT PPx-low risk, early ambulation recommended Charges/Coding Visit Charges Inpatient E&M: 57281 Subs Hosp L2
[2022-07-19 08:12] VITALS: BP 107/74; PULSE 95; RESP 18; TEMP 36.6; O2SAT 94
[2022-07-19] MEDS: Creon 3,000 unit DR Capsule 1 CAP PO ×2 (08:20→11:30)
[2022-07-19] MEDS: Thiamine Hydrochloride 100 MG Tablet PO (08:20)
[2022-07-19] MEDS: Folic Acid 1 MG Tablet PO (08:20)
[2022-07-19] MEDS: Venlafaxine XR 75 MG Capsule 225 MG PO (10:13)
[2022-07-19] MEDS: Escitalopram Oxalate 10 MG Tablet PO (10:13)
[2022-07-19] MEDS: buPROPion (XL) 300 MG TABLET.XL PO (10:13)
[2022-07-19] MEDS: Pantoprazole Sodium 40 MG Tablet PO (10:13)
[2022-07-19] MEDS: Dicyclomine 10 MG Capsule 20 MG PO ×2 (10:18→21:48)
--- NOTE | 2022-07-19 11:23 | ADDICTION ---
This jingle writer met with PT to conduct ASAM, MSE, AUDIT, DUDIT assessments and to plan for d/c. PT A+Ox4 and participated actively. All assessments completed, faxed to [facility] and placed in PT's chart. PT plans to f/u with [facility] for residential treatment services. Peer supporter will provide transportation Friday @9am post d/c from [facility].
[2022-07-19] MEDS: Ondansetron 8 MG Tablet PO ×2 (11:43→21:48)
[2022-07-19 14:32] VITALS: BP 129/87; PULSE 100; RESP 18; TEMP 36.9; O2SAT 97
[2022-07-19] MEDS: hydrOXYzine PAM 25 MG Capsule 50 MG PO (14:37)
--- NOTE | 2022-07-19 14:56 | CHAPLAIN ---
Type of Pastoral Visit _x__ Initial Visit ___ Follow-up Visit ___ On-call Visit ___ General Patient Visit ___ Spiritual Assessment ___ Family Conference ___ Bereavement ___ Rapid Response ___ Code Blue ___ Other (describe below) Pastoral Care Referral From _x__ Patient ___ Family ___ Nurse ___ Physician ___ Medical Social Consultant ___ Personal Care Service Provider ___ Other (describe below) Sacrament/Intervention _x__ Active listening ___ Anointing ___ Methodist ___ Bereavement ___ Communion _x__ Marj exploration ___ _x__ Life review _x__ Prayer ___ Reconciliation ___ Sacrament of Sick _x__ Supportive presence ___ Wedding ___ Other (describe below) Pastoral Comments patient is very talkative and open about her struggles with alcohol addiction; pt reviews her losses, her guilty feelings and shame, her disappointment with herself, and her hope for better life; pt states that she understands if she continues to drink that it will kill her; pt says that her family can't keep seeing me this way and that they can't keep doing this for me anymore; pt states she is thankful that [facility] will take me back and give me a place to stay for awhile; pt reviews her childhood advent marj and states she 'still believes' and she welcomes prayer
[2022-07-19] MEDS: Ketorolac 30 MG/ML Syringe IV (15:22)
[2022-07-19] MEDS: 0.9% Saline Lock 10 ML Syringe IV (15:22)
[2022-07-19 18:35] VITALS: BP 110/80; PULSE 98; RESP 16; TEMP 37; O2SAT 94
[2022-07-19 21:36] VITALS: BP 116/73; PULSE 101; RESP 18; TEMP 36.8; O2SAT 94
[2022-07-19] MEDS: traZODone 50 MG Tablet 150 MG PO (21:48)
[2022-07-20 02:55] VITALS: BP 120/83; PULSE 87; RESP 18; TEMP 36.3; O2SAT 94
[2022-07-20] MEDS: LORazepam 1 MG Tablet 0.5 MG PO ×6 (03:01→22:10)
[2022-07-20] MEDS: hydrOXYzine PAM 25 MG Capsule 50 MG PO ×3 (03:01→22:11)
[2022-07-20] MEDS: Creon 3,000 unit DR Capsule 1 CAP PO ×3 (08:05→18:13)
[2022-07-20] MEDS: Folic Acid 1 MG Tablet PO (08:05)
--- NOTE | 2022-07-20 08:06 | PCM.PN.HOSP ---
Subjective Subjective Follow-up on acute alcohol withdrawal: Patient was seen and examined.? She complains of gastric pain. She thinks she has pancreatitis. Admitting lipase was 94. We had a discussion over possible causes of epigastric pain including alcoholic gastritis. Recommended continuing PPI,mylanta and carafate. Objective Data Objective Data Vital Signs: Vital Signs Temp Pulse Resp BP Pulse Ox O2 Del Method 97.3 F L 87 18 120/83 H 94 Room Air 07/20/22 02:55 07/20/22 02:55 07/20/22 02:55 07/20/22 02:55 07/20/22 02:55 07/20/22 02:55 Oxygen Delivery Method Room Air Weight: 61.6 kg Body Mass Index (BMI) 20.5 Intake & Output: Intake and Output for Last 24 Hours 07/18/22 07/19/22 07/20/22 23:59 23:59 23:59 Intake Total 1300 / 1300 700 / 700 1210 / 1210 Balance 1300 / 1300 700 / 700 1210 / 1210 Lab / Micro Data Result Diagrams: 07/19/22 05:39 07/18/22 17:07 Micro: Microbiology 07/19/22 10:15 Nasal Secretion SARS-CoV-2 Antigen (Rapid) - Final Physical Exam Narrative Physical exam: General: Alert, Oriented x3, Cooperative, appears anxious HEENT: Atraumatic Oral: Moist Mucosa Neck: Supple Lungs: Clear to auscultation Cardiovascular: HS I+II, regular, no murmurs Abdomen: Bowel Sounds Present, Soft, mild epigastric tenderness, no guarding or RBT Extremities: No edema Skin: No rashes, No breakdown Neurological: Grossly intact Psych/Mental Status: Appropriate Assessment & Plan Assessment/Plan (1) Alcohol withdrawal: PLAN: Plan 1. Acute alcohol withdrawal, improving, last CIWA score was 10 Continue to monitor on alcohol withdrawal protocol 2. Probable alcoholic gastritis, continue on IV PPI, sacral fate, Mylanta as needed 3. Nicotine dependence, advised to quit, will continue on replacement 4. Leukocytosis, reactive, resolved 5. Anxiety/depression, stable, Continue bupropion, Lexapro, Effexor 6. GERD, continue PPI 7. DVT PPx-low risk, early ambulation recommended Charges/Coding Visit Charges Inpatient E&M: 17537 Subs Hosp L2
[2022-07-20] MEDS: Thiamine Hydrochloride 100 MG Tablet PO (08:07)
[2022-07-20 08:09] VITALS: BP 108/74; PULSE 78; RESP 16; TEMP 36.8; O2SAT 96
[2022-07-20] MEDS: Venlafaxine XR 75 MG Capsule 225 MG PO (10:13)
[2022-07-20] MEDS: buPROPion (XL) 300 MG TABLET.XL PO (10:14)
[2022-07-20] MEDS: Escitalopram Oxalate 10 MG Tablet PO (10:14)
[2022-07-20] MEDS: Mag Hydrox/Al Hydrox/Simeth 30 ML UDC PO ×2 (10:41→19:51)
[2022-07-20] MEDS: Ursodiol 250 MG Tablet PO ×2 (12:48→18:14)
[2022-07-20] MEDS: Gabapentin 300 MG Capsule PO (14:12)
[2022-07-20 14:14] VITALS: BP 136/99; PULSE 88; RESP 18; TEMP 36.9; O2SAT 98
[2022-07-20] MEDS: Sucralfate 1 GM Tablet PO ×2 (16:15→22:10)
[2022-07-20] MEDS: Ondansetron 8 MG Tablet PO (16:15)
[2022-07-20] MEDS: Dicyclomine 10 MG Capsule 20 MG PO ×2 (16:15→22:15)
[2022-07-20 19:44] VITALS: BP 109/81; PULSE 98; RESP 14; TEMP 36.6; O2SAT 99
[2022-07-20] MEDS: traZODone 50 MG Tablet 150 MG PO (22:10)
[2022-07-20 22:44] VITALS: BP 109/81; PULSE 98; RESP 14; TEMP 36.6; O2SAT 99
[2022-07-21 01:45] VITALS: BP 110/77; PULSE 98; RESP 14; TEMP 36.3; O2SAT 99
[2022-07-21] MEDS: LORazepam 1 MG Tablet 0.5 MG PO ×4 (02:21→18:34)
[2022-07-21 02:22] VITALS: BP 110/77; PULSE 98; RESP 14; TEMP 36.3; O2SAT 99
[2022-07-21] MEDS: Sucralfate 1 GM Tablet PO ×4 (06:06→21:04)
[2022-07-21] MEDS: hydrOXYzine PAM 25 MG Capsule 50 MG PO ×3 (06:11→21:05)
[2022-07-21] MEDS: Dicyclomine 10 MG Capsule 20 MG PO ×2 (06:11→21:05)
[2022-07-21 08:20] VITALS: BP 118/87; PULSE 90; RESP 16; TEMP 36.6; O2SAT 99
[2022-07-21] MEDS: Creon 3,000 unit DR Capsule 1 CAP PO ×3 (08:40→17:42)
[2022-07-21] MEDS: Folic Acid 1 MG Tablet PO (08:41)
[2022-07-21] MEDS: Thiamine Hydrochloride 100 MG Tablet PO (08:42)
[2022-07-21] MEDS: Ursodiol 250 MG Tablet PO ×3 (08:42→17:42)
[2022-07-21] MEDS: 0.9% Saline Lock 10 ML Syringe IV (09:57)
[2022-07-21] MEDS: Venlafaxine XR 75 MG Capsule 225 MG PO (09:57)
[2022-07-21] MEDS: Escitalopram Oxalate 10 MG Tablet PO (09:58)
[2022-07-21] MEDS: buPROPion (XL) 300 MG TABLET.XL PO (09:58)
--- NOTE | 2022-07-21 11:17 | PCM.PN.HOSP ---
Subjective Subjective Follow-up on acute alcohol withdrawal: Patient seen and examined. Her abdominal pain is fairly controlled. Complains of poor sleep. Denied any tremors. No acute events overnight. Objective Data Objective Data Vital Signs: Vital Signs Temp Pulse Resp BP Pulse Ox O2 Del Method 97.8 F 90 16 118/87 H 99 Room Air 07/21/22 08:20 07/21/22 08:20 07/21/22 08:20 07/21/22 08:20 07/21/22 08:20 07/21/22 08:54 Oxygen Delivery Method Room Air Weight: 61.6 kg Body Mass Index (BMI) 20.5 Intake & Output: Intake and Output for Last 24 Hours 07/19/22 07/20/22 07/21/22 23:59 23:59 23:59 Intake Total 700 / 700 2630 / 3280 950 / 950 Balance 700 / 700 2630 / 3280 950 / 950 Lab / Micro Data Result Diagrams: 07/19/22 05:39 07/18/22 17:07 Micro: Microbiology 07/19/22 10:15 Nasal Secretion SARS-CoV-2 Antigen (Rapid) - Final Physical Exam Narrative Physical exam: General: Alert, Oriented x3, Cooperative HEENT: Atraumatic Oral: Moist Mucosa Neck: Supple Lungs: Clear to auscultation Cardiovascular: HS I+II, regular, no murmurs Abdomen: Bowel Sounds Present, Soft, mild epigastric tenderness, no guarding or RBT Extremities: No edema Skin: No rashes, No breakdown Neurological: Grossly intact Psych/Mental Status: Appropriate Assessment & Plan Assessment/Plan (1) Alcohol withdrawal: PLAN: Plan 1. Acute alcohol withdrawal, improving, last CIWA score was 2 Continue to monitor on alcohol withdrawal protocol 2. Probable acute alcoholic gastritis, continue on PO PPI, sucralfate, Mylanta as needed 3. Nicotine dependence, advised to quit, will continue on replacement 4. Leukocytosis, reactive, resolved 5. Anxiety/depression, stable, Continue bupropion, Lexapro, Effexor 6. GERD, continue PPI 7. DVT PPx-low risk, early ambulation recommended Disposition: Discharge to inpatient drug rehab program in a.m. Charges/Coding Visit Charges Inpatient E&M: 61250 Subs Hosp L2
[2022-07-21] MEDS: Gabapentin 300 MG Capsule PO (13:32)
[2022-07-21 13:33] VITALS: BP 122/80; PULSE 88; RESP 18; TEMP 37.2; O2SAT 99
[2022-07-21 20:13] VITALS: BP 135/99; PULSE 106; RESP 14; TEMP 36.7; O2SAT 96
[2022-07-21] MEDS: LORazepam 1 MG Tablet PO (21:04)
[2022-07-21] MEDS: traZODone 50 MG Tablet 150 MG PO (21:05)
[2022-07-21] MEDS: Pantoprazole Sodium 40 MG Tablet PO (21:05)
[2022-07-22] MEDS: LORazepam 1 MG Tablet 0.5 MG PO ×2 (00:18→05:48)
[2022-07-22 02:00] VITALS: BP 100/69; PULSE 87; RESP 16; TEMP 36.5; O2SAT 95
[2022-07-22 02:30] VITALS: BP 100/69; PULSE 87; RESP 16; TEMP 36.5; O2SAT 95
[2022-07-22] MEDS: hydrOXYzine PAM 25 MG Capsule 50 MG PO ×2 (02:51→08:03)
[2022-07-22] MEDS: Gabapentin 300 MG Capsule PO (02:51)
[2022-07-22] MEDS: Sucralfate 1 GM Tablet PO (05:49)
[2022-07-22] MEDS: Dicyclomine 10 MG Capsule 20 MG PO (05:49)
--- NOTE | 2022-07-22 07:52 | PCM.DC.SUM ---
Providers Date of Admission: 07/18/22 Date of Discharge: 07/22/22 Reason For Visit: DESIRE FOR DETOXIFICATION Diagnosis Discharge Diagnosis (1) Alcohol withdrawal: Status: Acute Code(s): F10.939 - Alcohol use, unspecified with withdrawal, unspecified Medications at Discharge Home Medications lipase 3,000-protease 9,500-amylase 15,000 unit capsule, delayed rel (Creon) 1 cap PO TIDCM liver 07/17/22 multivit 33-meth.folate 2.5 mg-acetylcyst 200 mg-chromium 1 mg capsule 1 cap PO DAILY 07/17/22 acamprosate 333 mg tablet,delayed release 333 mg PO TID kidneys 07/18/22 bupropion HCl 300 mg 24 hr tablet, extended release 300 mg PO DAILY 07/18/22 chlordiazepoxide HCl 25 mg capsule 25 mg PO TID PRN PRN ask your doc 07/18/22 folic acid 1 mg tablet 1 mg PO DAILY supplement 07/18/22 gabapentin 300 mg capsule 300 mg PO BID nerve pain 07/18/22 meloxicam 15 mg tablet 15 mg PO DAILY anti infamitory 07/18/22 trazodone 100 mg tablet 150 mg PO QHS sleep 07/18/22 aluminum-mag hydroxide-simethicone 400 mg-400 mg-40 mg/5 mL oral susp (Mag-Al Plus Extra Strength) 30 ml PO Q4H PRN PRN dyspepsia #0 mL 07/22/22 dicyclomine 10 mg capsule 20 mg PO Q6H PRN PRN abdominal discomfort #0 caps 07/22/22 escitalopram oxalate 10 mg tablet 10 mg PO DAILY #0 tabs 07/22/22 pantoprazole 40 mg tablet,delayed release 40 mg PO BID #0 tabs 07/22/22 sucralfate 1 gram tablet 1 g PO 1HR_ACHS #0 tabs 07/22/22 thiamine HCl (vitamin B1) 100 mg tablet (Vitamin B-1) 100 mg PO DAILYCM #0 tabs 07/22/22 ursodiol 250 mg tablet 250 mg PO TIDCM #0 tabs 07/22/22 Hospital Course Summary of Care Provided Minutes Spent on Discharge: 35 Hospital Course: Patient is a 49-year-old female with history of chronic alcohol dependence admitted with acute alcohol withdrawal 1. Acute alcohol withdrawal ? Patient admitted to regular nursing floor managed with alcohol withdrawal protocol patient condition did stabilize discharged on inpatient rehab facility next 2. Suspected gastritis ? Patient treated with PPI as well as sacral fate 3. Tobacco dependence - Counseled on cessation, offered nicotine patch for tobacco cravings 4. Depression with anxiety ? Patient is on bupropion as well as Lexapro 5. DVT prophylaxis ? Low risk did encourage early ambulation Physical Exam Narrative GENERAL: cooperative HEENT: Atraumatic; EYES; Anicteric, Normal Conjunctiva NECK; supple, normal thyroid, RESPIRATORY: Diminished to auscultation CARDIOVASCULAR: Regular S1 S2, GI: soft, normoactive bowel sounds, : No Renal angle tenderness; EXTREMITIES: No edema, no clubbing, MUSCULOSKELETAL: no muscle wasting NEURO: Awake; no lateralizing signs. SKIN: No Rash PSYCH; Flat affect Weight / BMI Weight Weight: 61.6 kg Body Mass Index (BMI) 20.5 ABG / Lab / Microbiology Data Result Diagrams: 07/19/22 05:39 07/18/22 17:07 Microbiology: Microbiology 07/19/22 10:15 Nasal Secretion SARS-CoV-2 Antigen (Rapid) - Final Meaningful Use Info Meaningful Use Diagnoses (Choose all that apply): None applicable Discharge Plan Admission Admit Date/Time: 07/18/22 20:51 Attending Provider: Mynor Davies Consulting Providers: Jamal Cleary ; Mariela Thorpe Discharge Orders/Prescriptions Prescriptions: New sucralfate 1 gram Tablet 1 g PO 1HR_ACHS Qty: 0 0RF thiamine HCl (vitamin B1) [Vitamin B-1] 100 mg Tablet 100 mg PO DAILYCM Qty: 0 0RF pantoprazole 40 mg Tablet,Delayed Release (Dr/Ec) 40 mg PO BID Qty: 0 0RF ursodiol 250 mg Tablet 250 mg PO TIDCM Qty: 0 0RF dicyclomine 10 mg Capsule 20 mg PO Q6H PRN PRN (Reason: abdominal discomfort) Qty: 0 0RF alum-mag hydroxide-simeth [Mag-Al Plus Extra Strength] 400-400-40 mg/5 mL Suspension 30 ml PO Q4H PRN PRN (Reason: dyspepsia) Qty: 0 0RF escitalopram oxalate 10 mg Tablet 10 mg PO DAILY Qty: 0 0RF Continued Creon 3,000-9,500- 15,000 unit Capsule,Delayed Release(Dr/Ec) 1 cap PO TIDCM Label Comments: PT UNSURE OF DOSE. multivit 47-ugqnzejj-riy-chrom 2.5-200-1 mg-mg-mg Capsule 1 cap PO DAILY meloxicam 15 mg tablet 15 mg PO DAILY chlordiazepoxide HCl 25 mg capsule 25 mg PO TID PRN PRN (Reason: ask your doc) Label Comments: take 1 capsule by mouth three times a day for anxiety for up to 2 days trazodone 100 mg tablet 150 mg PO QHS gabapentin 300 mg capsule 300 mg PO BID folic acid 1 mg tablet 1 mg PO DAILY bupropion HCl 300 mg tablet extended release 24 hr 300 mg PO DAILY acamprosate 333 mg tablet,delayed release (DR/EC) 333 mg PO TID Label Comments: take 1 tablet by mouth twice a day Discontinued escitalopram oxalate [Lexapro] 5 mg Tablet 10 mg PO DAILY pantoprazole 40 mg tablet,delayed release (DR/EC) 40 mg PO DAILY lorazepam 1 mg tablet 1 mg PO PRN PRN (Reason: Seizures) oxycodone 5 mg tablet 5 mg PO Q6H PRN PRN (Reason: Pain) venlafaxine 225 mg tablet extended release 24hr 225 mg PO DAILY Referrals / Follow Up: [facility],Out of [Non-Staff] - Within 1 Month Disposition Disposition (needs filled in before D/C Order can be placed): Inpatient Rehab Unit/Facility Charges/Coding Visit Charges Inpatient E&M: 86446 Disch Hosp
[2022-07-22 07:54] VITALS: BP 103/69; PULSE 84; RESP 16; TEMP 36.4; O2SAT 100
[2022-07-22] MEDS: Creon 3,000 unit DR Capsule 1 CAP PO (08:03)
[2022-07-22] MEDS: Thiamine Hydrochloride 100 MG Tablet PO (08:04)
[2022-07-22] MEDS: Folic Acid 1 MG Tablet PO (08:04)
[2022-07-22] MEDS: Ursodiol 250 MG Tablet PO (08:04)
[2022-07-22] MEDS: Escitalopram Oxalate 10 MG Tablet PO (08:05)
[2022-07-22] MEDS: Pantoprazole Sodium 40 MG Tablet PO (08:05)
[2022-07-22] MEDS: Venlafaxine XR 75 MG Capsule 225 MG PO (08:05)
[2022-07-22] MEDS: buPROPion (XL) 300 MG TABLET.XL PO (08:06)
--- NOTE | 2022-07-22 09:24 | PHA.DC.MR ---
Pharmacy Service has performed discharge medication reconciliation for this patient. The patient's discharge medication list was reviewed for discrepancies and discrepancies were resolved. Home Medications lipase 3,000-protease 9,500-amylase 15,000 unit capsule, delayed rel (Creon) 1 cap PO TIDCM liver 07/17/22 multivit 33-meth.folate 2.5 mg-acetylcyst 200 mg-chromium 1 mg capsule 1 cap PO DAILY 07/17/22 acamprosate 333 mg tablet,delayed release 333 mg PO TID kidneys 07/18/22 bupropion HCl 300 mg 24 hr tablet, extended release 300 mg PO DAILY 07/18/22 chlordiazepoxide HCl 25 mg capsule 25 mg PO TID PRN PRN ask your doc 07/18/22 folic acid 1 mg tablet 1 mg PO DAILY supplement 07/18/22 gabapentin 300 mg capsule 300 mg PO BID nerve pain 07/18/22 meloxicam 15 mg tablet 15 mg PO DAILY anti infamitory 07/18/22 trazodone 100 mg tablet 150 mg PO QHS sleep 07/18/22 aluminum-mag hydroxide-simethicone 400 mg-400 mg-40 mg/5 mL oral susp (Mag-Al Plus Extra Strength) 30 ml PO Q4H PRN PRN dyspepsia #0 mL 07/22/22 dicyclomine 10 mg capsule 20 mg PO Q6H PRN PRN abdominal discomfort #0 caps 07/22/22 escitalopram oxalate 10 mg tablet 10 mg PO DAILY #0 tabs 07/22/22 pantoprazole 40 mg tablet,delayed release 40 mg PO BID #0 tabs 07/22/22 sucralfate 1 gram tablet 1 g PO 1HR_ACHS #0 tabs 07/22/22 thiamine HCl (vitamin B1) 100 mg tablet (Vitamin B-1) 100 mg PO DAILYCM #0 tabs 07/22/22 ursodiol 250 mg tablet 250 mg PO TIDCM #0 tabs 07/22/22
== END 2022-07-22 09:10 | DRG 775 ==
LOC: ED 16:43 → MS3 22:52
PROVIDERS: Admitting Provider Hospitalist; Emergency Provider Emergency Medicine; Visit Provider Internal Medicine
DX: F10.229 Alcohol dependence with intoxication, unspecified (principal); F10.239 Alcohol dependence with withdrawal, unspecified; K29.20 Alcoholic gastritis without bleeding; K21.9 Gastro-esophageal reflux disease without esophagitis; F17.210 Nicotine dependence, cigarettes, uncomplicated; F41.9 Anxiety disorder, unspecified; M54.9 Dorsalgia, unspecified; M54.2 Cervicalgia; Y90.8 Blood alcohol level of 240 mg/100 ml or more; F32.A Depression, unspecified; Z20.822 Contact with and (suspected) exposure to COVID-19; Z79.1 Long term (current) use of non-steroidal anti-inflammatories (NSAID); Z79.899 Other long term (current) drug therapy
CPT/HCPCS: 36415; 74177; 76705; 80053; 80307; 81001; 81025; 82077; 83690; 84703; 85025; 87426; 96361; 96372; 96374; 99283; 99285; J7030; A4216; J2405